=== PATIENT | female | born 1975 | race Caucasian/White ===

== ENCOUNTER 2020-10-09 11:48 | Emergency (ER) | payer OTHER ==
[~2020-10-09] VITALS: Ht 162.6 cm; Wt 101.4 kg
[2020-10-09 12:09] VITALS: BP 142/89
--- NOTE | 2020-10-09 12:35 | NUR ---
BASKET MENDER NOTE: PT TO ROOM FROM LOBBY. GAIT STEADY.
[2020-10-09] MEDS ORDERED: FLUCONAZOLE 100 MG TABLET PO ONE (13:00)
[2020-10-09] MEDS ORDERED: FLUCONAZOLE 100 MG TABLET ONE (13:43)
--- NOTE | 2020-10-09 13:48 | NUR ---
PT IS A 45F COMPLAINING OF VAGINAL ITCHING AND BURNING THAT IS NOT RELIEVED WITH OTC MEDICATIONS. SHE IS ALSO REQUESTING A REFILL OF KLONOPIN HER DOCTOR IS LEAVING THE [facility] AND DENIED HER REFILL REQUEST.
--- NOTE | 2020-10-09 14:17 | NUR ---
Patient/Caregiver given discharge instructions and they have confirmed that they understand the instructions. Patient ambulatory with steady gait.
== END 2020-10-09 14:18 | disposition home or self-care (01) ==
LOC: ED 12:40
DX: B37.9 Candidiasis, unspecified (principal); Z76.0 Encounter for issue of repeat prescription; Z88.9 Allergy status to unspecified drugs, medicaments and biological substances
CPT/HCPCS: 99283

== ENCOUNTER 2021-01-28 16:28 | Outpatient (CLI) | payer OTHER | END 2021-01-28 23:59 | disposition home or self-care (01) | LOC: CFH 16:28 | PROVIDERS: ATTEND Obstetrics & Gynecology | DX: Z12.31 Encounter for screening mammogram for malignant neoplasm of breast (principal) | CPT/HCPCS: 77063; 77067 ==

== ENCOUNTER → 2021-05-23 | Outpatient (CLI) | payer OTHER ==
[2021-05-23 07:57] LABS: ALANINE AMINOTRANSFERASE 84 U/L (12-78); ALBUMIN 3.4 g/dL (3.4-5.0); CALCIUM 9.3 mg/dL (8.5-10.1); CREATININE 0.77 mg/dL (0.55-1.02)
[2021-05-23 07:59] LABS: ALKALINE PHOSPHATASE 79 U/L (45-117); BILIRUBIN,TOTAL 0.3 mg/dL (0.2-1.0); TOTAL PROTEIN 7.2 g/dL (6.4-8.2)
[2021-05-23 08:06] LABS: ANION GAP 7 mmol/L (5-15); CHLORIDE 103 mmol/L (98-107)
== END | disposition home or self-care (01) ==
LOC: LAB 07:33
PROVIDERS: ATTEND Nurse Practitioner Family
DX: R74.01 Elevation of levels of liver transaminase levels (principal)
CPT/HCPCS: 36415; 80053